=== PATIENT | female | born 2000 | race Native Hawaiian/Other Pacific Islander ===

== ENCOUNTER 2022-03-05 15:30 | Emergency (ER) | payer MEDICAID ==
[~2022-03-05] VITALS: Ht 157.5 cm; Wt 80.7 kg
[2022-03-05 15:46] VITALS: BP 105/66
--- NOTE | 2022-03-05 16:15 | NUR ---
C/O VOMITING X1 TODAY. DENIES ANY DIARRHEA AND ABD PAIN. DENIES BLOOD IN VOMITUS. PER PT SHE "TOOK A WHIF OF HER FOOD AND JUST FELT SO NAUSEATED" NKZaheer PMH:DENIES
--- NOTE | 2022-03-05 16:27 | NUR ---
ALENA MCKEON AT [facility] FOR EVAL
[2022-03-05] MEDS ORDERED: NITR100C7 PO (16:33)
[2022-03-05] MEDS ORDERED: ONDA-188 PO (16:33)
--- NOTE | 2022-03-05 16:50 | NUR ---
Patient discharged with v/s stable. Written and verbal after care instructions ABOUT UTI AND FOOD POISONING given and explained. Patient alert, oriented and verbalized understanding of instructions. Ambulatory with steady gait. All questions addressed prior to discharge. ID band removed. Patient advised to follow up with PMD. Rx of MACROBID, ZOFRAN ODT given. Patient educated on indication of medication including possible reaction and side effects. Opportunity to ask questions provided and answered.
== END 2022-03-05 16:49 | disposition home or self-care (01) ==
LOC: MED 15:30
DX: N39.0 Urinary tract infection, site not specified (principal); Z79.899 Other long term (current) drug therapy; Z79.2 Long term (current) use of antibiotics
CPT/HCPCS: 81002; 81025; 99283

== ENCOUNTER 2023-01-30 22:21 | Emergency (ER) | payer MEDICAID ==
[~2023-01-30] VITALS: Ht 157.5 cm; Wt 78.9 kg
[~2023-01-30 22:21] MED LIST: NITR100C7 PO; ONDA-188 PO
[2023-01-30 22:50] VITALS: BP 127/81; PULSE 97; RESP 14; TEMP 98.2; O2SAT 99
[2023-01-31] MEDS ORDERED: SODIUM PHOSPHATE 118 ML ENEM RC ONE (00:20)
[2023-01-31] MEDS ORDERED: MIRABULK PO (00:22)
[2023-01-31 02:00] VITALS: BP 127/81; PULSE 97; RESP 14; TEMP 98.2; O2SAT 99
== END 2023-01-31 02:00 | disposition home or self-care (01) ==
LOC: MED 22:21
DX: K59.00 Constipation, unspecified (principal); Z79.899 Other long term (current) drug therapy
CPT/HCPCS: 74018; 99284; Q0092